=== PATIENT | female | born 1990 | race Caucasian/White ===

== ENCOUNTER 2017-11-30 23:25 | Emergency (ER) | payer SELFPAY ==
[~2017-11-30] VITALS: Ht 160 cm; Wt 81.6 kg
[2017-11-30 23:30] VITALS: BP 128/90
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
[2017-11-30] MEDS ORDERED: MULTIVITAMIN-12 10 ML, THIAMINE 100 MG, MAGNESIUM SULFATE 50% 2,000 MG, FOLIC ACID 5 MG... IV ONE ×5 (23:45)
[2017-11-30] MEDS ORDERED: THIAMINE 200 MG/2 ML VIAL ONE (23:56)
[2017-11-30] MEDS ORDERED: FOLIC ACID 5 MG/ML SYR ONE (23:56)
[2017-11-30] MEDS ORDERED: MAGNESIUM SULFATE 50% 1000 MG/2 ML VIAL IV ONE (23:56)
[2017-11-30] MEDS ORDERED: MULTIVITAMIN-12 10 ML VIAL IV ONE (23:56)
[2017-12-01 00:30] LABS: BASOPHILS # (AUTO) 0.3 K/uL (0.00-0.22); BASOPHILS % (AUTO) 3.1 % (0.0-2.0); EOSINOPHILS # (AUTO) 0.6 K/uL (0-0.4); EOSINOPHILS % (AUTO) 5.1 % (0.0-4.0); HEMOGLOBIN 13.3 g/dL (12.0-16.0); LYMPHOCYTES # (AUTO) 2.8 K/uL (2.5-16.5); LYMPHOCYTES % (AUTO) 26.3 % (20.5-51.1); MEAN CORPUSCULAR HEMOGLOBIN 28 pg (27-31); MEAN CORPUSCULAR HGB CONC 33 g/dL (33-37); MEAN CORPUSCULAR VOLUME 85 fL (80-94); MONOCYTES # (AUTO) 0.6 K/uL (0.8-1.0); MONOCYTES % (AUTO) 5.4 % (1.7-9.3); NEUTROPHILS # (AUTO) 6.5 K/uL (1.8-7.7); NEUTROPHILS % (AUTO) 60.1 % (42.2-75.2); PLATELET COUNT (AUTO) 448 K/uL (140-450); RED BLOOD CELL COUNT(AUTO) 4.72 MIL/uL (4.20-5.40); RED CELL DISTRIBUTION WIDTH 12.6 % (11.6-13.7); WHITE BLOOD COUNT (AUTO) 10.8 K/uL (4.8-10.8)
[2017-12-01 00:43] LABS: ANION GAP 12.9 (8-16); CARBON DIOXIDE 25.8 mmol/L (21-32); CHLORIDE 108 mmol/L (98-107); CREATININE 0.9 mg/dL (0.6-1.3); GFR ARICAN-AMERICAN 96 mL/min (>90); GLUCOSE 110 mg/dL (74-106); POTASSIUM 3.7 mmol/L (3.5-5.1); SODIUM SERUM 143 mmol/L (136-145); UREA NITROGEN, BLOOD 11 mg/dL (7-18)
[2017-12-01 00:53] LABS: BARBITURATE, URINE NEG. ng/ml (NEG <=200); BENZODIAZEPINE, URINE NEG. ng/mL (NEG <=200); CANNABINOID, URINE NEG. ng/mL (NEG <=50); COCAINE, URINE NEG. ng/mL (NEG <=300); OPIATE, URINE NEG. ng/mL (NEG <=2000); PHENCYCLIDINE SCREEN,URINE NEG. ng/mL (NEG <=25)
[2017-12-01 00:54] LABS: ALBUMIN 3.3 g/dL (3.4-5.0); ASPARTATE AMINOTRANSFERASE 26 U/L (15-37); TOTAL BILIRUBIN 0.2 mg/dL (0.0-1.0)
[2017-12-01 00:56] LABS: ACETAMINOPHEN < 0.5 ug/ml (10-30); SALICYLATE < 2.8 mg/dL (2.8-20.0)
--- NOTE | 2017-12-01 01:01 | NUR ---
Patient appears to be resting comfortably in bed. Vital Signs within normal limits. Respirations even and unlabored.
--- NOTE | 2017-12-01 01:53 | NUR ---
PT IS SLEEPING AND VS WITHOUT ACUTE DISTRESS NOTED. ALL SAFETY PRECAUTIONS ARE IN PLACE. WILL CONTINUE TO MONITOR.
--- NOTE | 2017-12-01 03:00 | NUR ---
PT SLEEPING AND SNORING. VS WITHOUT ACUTE DISTRESS. NO S/SX OF PAIN OR DISCOMFORT. WILL CONTINUE TO MONITOR.
--- NOTE | 2017-12-01 04:00 | NUR ---
PT SLEEPING AND SNORING. NO S/SX OF PAIN OR DISCOMFORT. 900ML OF CLEAR YELLOW URINE EMPTIED FROM F/C. VS WITHOUT ACUTE DISTRESS. ALL SAFETY PRECAUTIONS ARE IN PLACE.
--- NOTE | 2017-12-01 05:02 | NUR ---
PT SLEEPING AND SNORING. VS WITHOUT ACUTE DISTRESS. ALL SAFETY PRECAUTIONS ARE IN PLACE. WILL CONTINUE TO MONITOR.
--- NOTE | 2017-12-01 05:15 | NUR ---
BLOOD SAMPLE COLLECTED FOR SERUM ALCOHOL LELVEL ORDERED. PT TOLERATED WELL.
[2017-12-01 05:50] VITALS: BP 102/64
--- NOTE | 2017-12-01 05:50 | NUR ---
Patient discharged with v/s stable. Written and verbal after care instructions given and explained. Patient verbalized understanding. Ambulatory with steady gait. All questions addressed prior to discharge. Advised to follow up with PMD.
== END 2017-12-01 05:50 | disposition home or self-care (01) ==
LOC: MED 23:25
DX: F10.129 Alcohol abuse with intoxication, unspecified (principal); R03.0 Elevated blood-pressure reading, without diagnosis of hypertension; R94.31 Abnormal electrocardiogram [ECG] [EKG]; J45.909 Unspecified asthma, uncomplicated
CPT/HCPCS: 36415; 80053; 80305; 85025; 96365; 96366; 99285; A9153; G0480; G0482; J3411; J3475; J3490